=== PATIENT | female | born 1990 | race Caucasian/White ===

== ENCOUNTER 2017-11-17 17:18 | Inpatient (IN) | payer OTHER ==
[2017-11-17] MEDS: SOD CHLORIDE 0.9% 1,000 ML IV (21:28)
[2017-11-17] MEDS: ACETAMINOPHEN 325 MG TAB PO (21:28)
[2017-11-17 21:53] LABS: ADD MAN DIFF? NO
[2017-11-17 21:57] LABS: BASOPHILS % 0.2 % (0.0-2.0); EOSINOPHILS # 0.3 10^3/ul (0.0-0.5); EOSINOPHILS % 1.9 % (0.0-7.0); HEMATOCRIT 32.1 % (37.0-47.0); LYMPHOCYTES # 2.9 10^3/ul (0.8-2.9); LYMPHOCYTES % 22.4 % (15.0-51.0); MEAN CORPUSCULAR HEMOGLOBIN 25.4 pg (29.0-33.0); MEAN CORPUSCULAR HGB CONC 31.2 g/dl (32.0-37.0); MEAN CORPUSCULAR VOLUME 81.5 fl (82.0-101.0); MEAN PLATELET VOLUME 10.5 fl (7.4-10.4); MONOCYTE # 0.7 10^3/ul (0.3-0.9); MONOCYTES % 5.6 % (0.0-11.0); NEUTROPHILS % 69.4 % (39.0-77.0); PLATELET COUNT 380 10^3/UL (140-415); RED BLOOD COUNT 3.94 10^6/ul (4.20-5.40); RED CELL DISTRIBUTION WIDTH 15.8 % (11.5-14.5)
[2017-11-17 21:57] LABS: WHITE BLOOD COUNT 12.9 10^3/ul (4.8-10.8)
[2017-11-17 22:20] LABS: ADD UMIC YES; INR 0.98; PROTIME 13.1 Sec (11.9-14.9); UR ASCORBIC ACID NEGATIVE (NEGATIVE); UR BILIRUBIN (Dip) NEGATIVE (NEGATIVE); UR BLOOD (Dip) 1+ mg/dL (NEGATIVE); UR CLARITY SLIGHTLY CLOUDY (CLEAR); UR COLOR YELLOW (YELLOW); UR GLUCOSE (Dip) NEGATIVE (NEGATIVE); UR KETONES (Dip) NEGATIVE (NEGATIVE); UR LEUKOCYTE ESTERASE (Dip) TRACE Leu/ul (NEGATIVE); UR MUCUS FEW /HPF (NONE SEEN); UR NITRITE (Dip) NEGATIVE (NEGATIVE); UR RBC 3 /HPF (0-5); UR SPECIFIC GRAVITY (Dip) 1.025 (1.003-1.030); UR SQUAMOUS EPITHELIAL CELL FEW /HPF (FEW); UR TOTAL PROTEIN (Dip) NEGATIVE (NEGATIVE); UR UROBILINOGEN (Dip) NEGATIVE (NEGATIVE); UR WBC 0 /HPF (0-5)
[2017-11-17 22:21] LABS: PARTIAL THROMBOPLASTIN TIME 28.9 Sec (25.0-35.0)
[2017-11-17 22:22] LABS: ALANINE AMINOTRANSFERASE 26 IU/L (13-69); ALBUMIN 4.3 g/dl (3.3-4.9); ALBUMIN/GLOBULIN RATIO 1.16; ALKALINE PHOSPHATASE 60 IU/L (42-121); ANION GAP 16 (8-16); ASPARTATE AMINO TRANSFERASE 17 IU/L (15-46); BILIRUBIN,INDIRECT 0.1 mg/dl (0-1.1); BILIRUBIN,TOTAL 0.1 mg/dl (0.2-1.3); BLOOD UREA NITROGEN 10 mg/dl (7-20); CALCIUM 9.9 mg/dl (8.4-10.2); CARBON DIOXIDE 23 mmol/L (21-31); CHLORIDE 105 mmol/L (97-110); CREATININE 0.67 mg/dl (0.44-1.00); GLUCOSE 108 mg/dl (70-220); POTASSIUM 3.6 mmol/L (3.5-5.1); SODIUM 140 mmol/L (135-144)
[2017-11-18] MEDS: ONDANSETRON 4 MG INJ IV (00:46)
[2017-11-18] MEDS: LACTATED RINGER'S 1,000 ML IV ×3 (01:29→16:34)
[2017-11-18] MEDS: morphine 2 MG INJ IV (14:21)
[2017-11-18] MEDS: HYDROCODONE/APAP (5/325) TAB PO (18:30)
[2017-11-19] MEDS: LACTATED RINGER'S 1,000 ML IV ×3 (00:50→16:34)
[2017-11-19 01:20] LABS: HEMATOCRIT 28.8 % (37.0-47.0)
[2017-11-19 06:23] LABS: HEMATOCRIT 27.8 % (37.0-47.0); HEMOGLOBIN 8.9 g/dl (12.0-16.0)
[2017-11-19 11:56] LABS: PROGESTERONE 12.2 ng/mL
[2017-11-21] MEDS ORDERED: INFLUENZA VIRUS VACCINE 0.5 ML (DISPENSING) IM* (09:00)
== END 2017-11-19 17:30 | disposition home or self-care (01) | DRG 782 ==
LOC: E/R 17:18 → PP2 11-18 00:01
DX: O34.81 Maternal care for other abnormalities of pelvic organs, first trimester (principal); O00.90 Unspecified ectopic pregnancy without intrauterine pregnancy; Z3A.01 Less than 8 weeks gestation of pregnancy; N83.10 Corpus luteum cyst of ovary, unspecified side
CPT/HCPCS: 76801; 76817; 80053; 81001; 84144; 84702; 85014; 85018; 85025; 85610; 85730; 86850; 86900; 86901; 96361; 96374; 99285-25

== ENCOUNTER 2017-11-22 07:33 | Emergency (ER) | payer OTHER | END 2017-11-22 14:41 | disposition home or self-care (01) | LOC: FTE 07:33 | DX: O26.891 Other specified pregnancy related conditions, first trimester (principal); R10.2 Pelvic and perineal pain; Z3A.01 Less than 8 weeks gestation of pregnancy | CPT/HCPCS: 36415; 76801; 76817; 84702; 99284-25 ==

== ENCOUNTER 2017-11-24 08:49 | Emergency (ER) | payer OTHER ==
[2017-11-24 11:54] LABS: ADD MAN DIFF? NO
[2017-11-24 11:56] LABS: BASOPHILS % 0.2 % (0.0-2.0); EOSINOPHILS # 0.1 10^3/ul (0.0-0.5); EOSINOPHILS % 1.6 % (0.0-7.0); HEMATOCRIT 30.8 % (37.0-47.0); HEMOGLOBIN 9.9 g/dl (12.0-16.0); LYMPHOCYTES # 2.1 10^3/ul (0.8-2.9); LYMPHOCYTES % 23.3 % (15.0-51.0); MEAN CORPUSCULAR HEMOGLOBIN 26.1 pg (29.0-33.0); MEAN CORPUSCULAR HGB CONC 32.1 g/dl (32.0-37.0); MEAN CORPUSCULAR VOLUME 81.3 fl (82.0-101.0); MEAN PLATELET VOLUME 10.7 fl (7.4-10.4); MONOCYTE # 0.5 10^3/ul (0.3-0.9); MONOCYTES % 5.6 % (0.0-11.0); NEUTROPHIL # 6.1 10^3/ul (1.6-7.5); PLATELET COUNT 338 10^3/UL (140-415); RED BLOOD COUNT 3.79 10^6/ul (4.20-5.40); RED CELL DISTRIBUTION WIDTH 15.9 % (11.5-14.5)
[2017-11-24 11:56] LABS: WHITE BLOOD COUNT 8.9 10^3/ul (4.8-10.8)
[2017-11-24 12:20] LABS: ANION GAP 15 (8-16); BLOOD UREA NITROGEN 10 mg/dl (7-20); CALCIUM 8.6 mg/dl (8.4-10.2); CARBON DIOXIDE 23 mmol/L (21-31); CHLORIDE 107 mmol/L (97-110); CREATININE 0.58 mg/dl (0.44-1.00); GLUCOSE 80 mg/dl (70-220); POTASSIUM 3.7 mmol/L (3.5-5.1); SODIUM 141 mmol/L (135-144)
[2017-11-24] MEDS: ONDANSETRON 4 MG INJ IV (14:03)
[2017-11-24] MEDS: morphine 4 MG/ML VIAL IV (14:03)
== END 2017-11-24 15:17 | disposition home or self-care (01) ==
LOC: E/R 08:49
DX: O20.0 Threatened abortion (principal); R10.2 Pelvic and perineal pain; Z3A.01 Less than 8 weeks gestation of pregnancy
CPT/HCPCS: 36415; 76801; 76817; 80048; 84702; 85025; 86900; 86901; 96374; 96375; 99285-25

== ENCOUNTER 2018-03-07 09:48 | Outpatient (CLI) | payer OTHER ==
[2018-03-07 10:34] LABS: ADD UMIC YES; UR ASCORBIC ACID NEGATIVE (NEGATIVE); UR BILIRUBIN (Dip) NEGATIVE (NEGATIVE); UR BLOOD (Dip) NEGATIVE (NEGATIVE); UR CLARITY SLIGHTLY CLOUDY (CLEAR); UR COLOR YELLOW (YELLOW); UR GLUCOSE (Dip) NEGATIVE (NEGATIVE); UR KETONES (Dip) NEGATIVE (NEGATIVE); UR LEUKOCYTE ESTERASE (Dip) TRACE Leu/ul (NEGATIVE); UR NITRITE (Dip) NEGATIVE (NEGATIVE); UR RBC 0 /HPF (0-5); UR SPECIFIC GRAVITY (Dip) 1.017 (1.003-1.030); UR SQUAMOUS EPITHELIAL CELL FEW /HPF (FEW); UR TOTAL PROTEIN (Dip) NEGATIVE (NEGATIVE); UR UROBILINOGEN (Dip) NEGATIVE (NEGATIVE); UR WBC 2 /HPF (0-5)
[2018-03-07 10:43] LABS: RUPTURE FETAL MEMBRANES NEGATIVE (NEGATIVE)
== END 2018-03-07 11:05 | disposition home or self-care (01) ==
LOC: OBT 09:48 → L-D 09:49 → OBT 11:05
DX: O62.9 Abnormality of forces of labor, unspecified (principal); Z3A.20 20 weeks gestation of pregnancy
CPT/HCPCS: 76815; 76817; 81001; 84112

== ENCOUNTER 2019-03-23 18:02 | Emergency (ER) | payer OTHER ==
[2019-03-23] MEDS: IBUPROFEN 600 MG TAB PO (19:55)
[2019-03-23] MEDS: ACETAMINOPHEN 325 MG TAB PO (19:56)
== END 2019-03-23 20:09 | disposition home or self-care (01) ==
LOC: FTE 20:09
DX: N61.0 Mastitis without abscess (principal)
CPT/HCPCS: 99283; Z7502